=== PATIENT | female | born 1970 | race Two or more races ===

== ENCOUNTER 2018-11-07 20:37 | Inpatient (IN) | payer OTHER ==
[~2018-11-07] VITALS: Ht 167.6 cm; Wt 96.4 kg
[2018-11-07 22:15] LABS: Eosinophils # (auto) 0.3 uL; Hemoglobin 7.2 g/dL (12.2-16.2); Monocytes # (auto) 0.6 uL
[2018-11-07 22:17] LABS: Basophils # (auto) 0.1 uL; Basophils % (auto) 1.3 % (0.0-2.0); Eosinophils % (auto) 3.3 % (0.0-7.0); Hematocrit 24.8 % (36.0-46.0); Lymphocytes # (auto) 2.8 uL; Lymphocytes % (auto) 29.2 % (10.0-50.0); Mean Corpuscular Hemoglobin 16.7 pg (28.0-32.0); Mean Corpuscular Hgb Conc. 29.1 g/dL (32.0-36.0); Mean Corpuscular Volume 57.3 fL (80.0-100.0); Monocytes % (auto) 6.3 % (0.0-12.0); Neutrophils # (auto) 5.8 uL; Neutrophils % (auto) 59.9 % (37.0-80.0); Nucleated Red Blood Cells % 0.5 %; Red Blood Cells 4.33 10^6/uL (4.0-5.20); White Blood Cell 9.6 10^3/uL (4.4-10.8)
[2018-11-07 22:23] LABS: Red Cell Distribution Width 22.9 % (11.8-14.3)
[2018-11-07 22:25] LABS: Platelet Count (auto) 842 10^3/uL (140-450)
[2018-11-07 22:28] LABS: Albumin 3.6 g/dL (3.4-5.0); BUN/Creatinine Ratio 11.9; Calcium 8.3 mg/dL (8.5-10.1); Potassium 3.6 mmol/L (3.5-5.1)
[2018-11-07 22:31] LABS: Bilirubin, Total 0.2 mg/dL (0.2-1.0); Total Protein 7.6 g/dL (6.4-8.2)
[2018-11-07 22:56] LABS: Urine Bacteria NONE SEEN /hpf (None Seen); Urine Blood 1+ /uL (Negative); Urine Specific Gravity 1.004 (1.001-1.035); Urine WBC <1 /hpf (0 - 5)
[2018-11-07] MEDS ORDERED: SODIUM CHLORIDE 0.9% 1,000 ML IV ONE ×2 (23:00→23:30)
[2018-11-07 23:09] LABS: Alcohol, Urine < 3.0 mg/dL (0-5); Amphetamine Screen, Urine NEGATIVE (NEGATIVE); Barbiturate Scree,Urine NEGATIVE (NEGATIVE); Benzodiazephine Screen, Urine NEGATIVE (NEGATIVE); Cannabinoid Screen, Urine NEGATIVE (NEGATIVE); Cocaine Screen, Urine NEGATIVE (NEGATIVE); Opiate Scree,Urine NEGATIVE (NEGATIVE); Phencyclidine Screen, Urine NEGATIVE (NEGATIVE)
[2018-11-08 00:13] LABS: Blood Alcohol < 3.0 mg/dL (0-5)
[2018-11-08] MEDS ORDERED: ACETAMINOPHEN 325 MG TAB PO ONE (00:15)
[2018-11-08 00:18] LABS: INR 0.91 (0.9-1.15); Partial Thromboplastin Time 22.9 sec (23.78-33.04); Prothrombin Time 9.8 sec (9.27-12.13)
[2018-11-08] MEDS ORDERED: TEMAZEPAM 15 MG CAP PO PRN (05:00)
[2018-11-08] MEDS ORDERED: ONDANSETRON HCL 4 MG/2 ML VIAL IV PRN (05:00)
[2018-11-08] MEDS ORDERED: ACETAMINOPHEN 325 MG TAB PO PRN (05:00)
[2018-11-08] MEDS ORDERED: ATORVASTATIN 20 MG TAB PO ONE (06:00)
[2018-11-08] MEDS ORDERED: ASPirin 81 mg TAB PO SCH (10:00)
[2018-11-08] MEDS: FAMOTIDINE 20 MG TAB PO SCH ×2 (11:53→22:53)
[2018-11-08] MEDS: ASPirin 81 mg TAB PO SCH (11:54)
[2018-11-08 12:14] LABS: % Iron Saturation 1.7 % (15-50)
[2018-11-08 12:20] LABS: Cholesterol 169 mg/dL (< 200); HDL Cholesterol 57 mg/dL (40-59); LDL Cholesterol 104 mg/dL (< 100); Triglycerides 114 mg/dL (< 150)
[2018-11-08 17:00] VITALS: BP 137/90
--- NOTE | 2018-11-08 17:00 | NUR ---
Telemetry admit from ER [facility] admitted to Telemetry unit no SBAR received from Suzan MA RN. Patient oriented to Kylie Fisher RN primary RN, unit, room, bed, and unit policies regarding patient care and visiting hours. Patient is awake and alert x4. Patient has no s/s of distress/sob. Instructed patient on poc, patient verbalized understanding. Patient weighed by bedscale and encouraged to call if they need something. All questions and concerns addressed, patient verbalized understanding. Bed is in lowest position with side rails raised x2, bed wheels locked and call light within reach. will continue to monitor. family at bedside Note:
[2018-11-08] MEDS ORDERED: INFLUENZA QUAD 2018-2019 0.5 ML SYRG IM ONE (18:30)
[2018-11-08] MEDS ORDERED: PNEUMOCOCCAL VACC POLYS 25 MCG/0.5 ML VIAL IM ONE (18:30)
[2018-11-08] MEDS ORDERED: CARV3.1240 PO (18:37)
[2018-11-08] MEDS ORDERED: FLUO-125 PO (18:37)
[2018-11-08] MEDS ORDERED: FURO40TA4 PO (18:37)
[2018-11-08] MEDS ORDERED: LOSA-49 PO (18:37)
[2018-11-08] MEDS ORDERED: METF-370 PO (18:37)
[2018-11-08] MEDS ORDERED: DULO60CA PO (18:37)
[2018-11-08] MEDS ORDERED: GABA300C10 PO (18:37)
[2018-11-08] MEDS: metFORMIN HYDROCHLORIDE 500 MG TAB PO SCH (18:45)
--- NOTE | 2018-11-08 19:14 | NUR ---
CLOSING SHIFT NOTE ENDORSED CARE TO DIRECTOR OF PHYSICAL SECURITY RN BRENTON. PATIENT HAS NO S/S OF DISTRESS/SOB OR PAIN AT THIS TIME.
--- NOTE | 2018-11-08 19:30 | NUR ---
Opening Shift Note Assumed care of patient, awake and alert. No S/S of distress/SOB. Pt states that she has a headache 08/20. Instructed on POC and to call for assistance as needed. Pt is laying in bed with the rails up x2, bed locked in the lowest position and the call light is within reach. Pt has a 18 ga IV in the left AC that flushes without discomfort. Will continue to monitor.
[2018-11-08 22:00] VITALS: BP 114/64
[2018-11-08] MEDS ORDERED: ATORVASTATIN 20 MG TAB PO SCH (22:00)
[2018-11-08] MEDS: ATORVASTATIN 20 MG TAB PO SCH (22:53)
[2018-11-08] MEDS: HYDROcodone-ACET 5/325MG TAB PO PRN (23:04)
[2018-11-09 05:00] VITALS: BP 134/81
[2018-11-09 05:50] LABS: Basophils # (auto) 0.1 uL; Lymphocytes # (auto) 1.9 uL; Mean Corpuscular Volume 57.1 fL (80.0-100.0); Monocytes # (auto) 0.5 uL; Nucleated Red Blood Cells % 0.4 %
[2018-11-09 05:53] LABS: Basophils % (auto) 1.7 % (0.0-2.0); Eosinophils # (auto) 0.4 uL; Eosinophils % (auto) 5.2 % (0.0-7.0); Hematocrit 23.8 % (36.0-46.0); Lymphocytes % (auto) 26.9 % (10.0-50.0); Mean Corpuscular Hemoglobin 16.8 pg (28.0-32.0); Mean Corpuscular Hgb Conc. 29.3 g/dL (32.0-36.0); Monocytes % (auto) 7.3 % (0.0-12.0); Neutrophils # (auto) 4.2 uL; Neutrophils % (auto) 58.9 % (37.0-80.0); Platelet Count (auto) 688 10^3/uL (140-450); Red Blood Cells 4.16 10^6/uL (4.0-5.20); White Blood Cell 7.2 10^3/uL (4.4-10.8)
[2018-11-09 06:03] LABS: Red Cell Distribution Width 22.2 % (11.8-14.3)
[2018-11-09 06:07] LABS: Albumin 3.2 g/dL (3.4-5.0); Potassium 3.7 mmol/L (3.5-5.1)
--- NOTE | 2018-11-09 06:10 | NUR ---
Paged Hospitalist Hgb of 7.0. Down from 7.2
[2018-11-09 06:13] LABS: BUN/Creatinine Ratio 17.6; Bilirubin, Total 0.2 mg/dL (0.2-1.0); Calcium 8.5 mg/dL (8.5-10.1); Total Protein 6.7 g/dL (6.4-8.2)
[2018-11-09] MEDS: metFORMIN HYDROCHLORIDE 500 MG TAB PO SCH ×2 (06:35→17:53)
[2018-11-09] MEDS: HYDROcodone-ACET 5/325MG TAB PO PRN ×3 (06:37→19:21)
--- NOTE | 2018-11-09 06:40 | NUR ---
Page returned Received orders to repeat H&H 4 hours from previous draw.
[2018-11-09 09:00] VITALS: BP 124/77
[2018-11-09 09:46] LABS: Hematocrit 25.2 % (36.0-46.0); Hemoglobin 7.4 g/dL (12.2-16.2)
[2018-11-09] MEDS: FLUoxetine HCL 20 MG CAP PO SCH (10:44)
[2018-11-09] MEDS: ASPirin 81 mg TAB PO SCH (10:44)
[2018-11-09] MEDS: FAMOTIDINE 20 MG TAB PO SCH ×2 (10:44→22:16)
[2018-11-09] MEDS: DULoxetine HCL 30 MG CAP PO SCH (10:45)
[2018-11-09 13:00] VITALS: BP 139/82
[2018-11-09 17:00] VITALS: BP 132/77
--- NOTE | 2018-11-09 19:25 | NUR ---
Opening Shift Note Assumed care of patient, awake and alert. No S/S of distress/SOB. Pt states that she has a headache 04/20. Instructed on POC and to call for assistance as needed. Pt is laying in bed with the rails up x2, bed locked in the lowest position and the call light is within reach. Pt has a 18 ga IV in the left AC that flushes without discomfort. Will continue to monitor.
[2018-11-09 22:00] VITALS: BP 114/66
[2018-11-09] MEDS: ATORVASTATIN 20 MG TAB PO SCH (22:16)
[2018-11-10] MEDS: HYDROcodone-ACET 5/325MG TAB PO PRN ×3 (00:46→20:40)
[2018-11-10 04:52] VITALS: BP 135/86
--- NOTE | 2018-11-10 05:02 | NUR ---
IV insertion IV access obtained, via clean sterile technique by inserting 22 gauge catheter in the right forearm. IV secured properly. No trauma to site. Patient tolerated procedure well.
[2018-11-10] MEDS: metFORMIN HYDROCHLORIDE 500 MG TAB PO SCH ×2 (06:14→17:55)
--- NOTE | 2018-11-10 07:50 | NUR ---
RECEIVED PATIENT ALERT AND ORIENTED X4, NOT IN DISTRESS, CLEAR LS IN BILATERAL LUNG LOBES, RR=18, DENIED SOB OR CHEST DISCOMFORT, ABDOMEN SOFT WITH ACTIVE BS, LAST BM=THIS MORNING REPORTED, TR.UPPER EXTREMITY WEAKNESS NOTED, SKIN INTACT WARM TO TOUCH, HEAD OF BED ELEVATED, BED ON LOWER POSITION, RAILS UP X2, CALL LIGHT ON REACH, DENIED PAIN AT THIS MOMENT, RESTING ON BED, WILL CONTINUE MONITORING.
[2018-11-10 08:51] VITALS: BP 136/80
[2018-11-10] MEDS: DULoxetine HCL 30 MG CAP PO SCH (10:25)
[2018-11-10] MEDS: ASPirin 81 mg TAB PO SCH (10:25)
[2018-11-10] MEDS: FAMOTIDINE 20 MG TAB PO SCH ×2 (10:25→21:21)
[2018-11-10] MEDS: FLUoxetine HCL 20 MG CAP PO SCH (10:25)
--- NOTE | 2018-11-10 10:54 | NUR ---
NOT IN DISTRESS, C/O HEADACH PAIN L=[id number] REPORTED, NORCO PO PRN WAS GIVEN REPORTED, AMBULATED TO BR, TOLERATED WELL, WENT ON WC TO MRI, WILL CONTINUE MONITORING.
[2018-11-10 11:12] LABS: Folate (Folic Acid) 10.67 ng/mL (5.38-24)
[2018-11-10] MEDS: SODIUM FERR GLUC 62.5MG/5ML 125 MG in SODIUM CHL 0.9% 100 ML IV SCH (12:25)
[2018-11-10 13:00] VITALS: BP 119/76
--- NOTE | 2018-11-10 16:06 | NUR ---
MRI WAS DONE, DR. [facility]UR[facility] IS AWARE OF THE MRI RESULT REPORTED, PELVIC US WAS DONE, TOLERATED WELL, WENT ON FOR PELVIC CT, STOOL SAMPLE WAS SENT TO THE LAB FOR STOOL OCCULT BLOOD ORDERED, WILL CONTINUE MONITORING.
[2018-11-10 17:00] VITALS: BP 139/92
--- NOTE | 2018-11-10 19:30 | NUR ---
Opening Shift Note Assumed care of patient, awake and alert. No S/S of distress/SOB. Pt states that she has a headache 04/20. Instructed on POC and to call for assistance as needed. Pt is laying in bed with the rails up x2, bed locked in the lowest position and the call light is within reach. Pt has a 22ga IV in the right forearm that flushes without discomfort. Will continue to monitor.
--- NOTE | 2018-11-10 19:32 | NUR ---
NOT IN DISTRESS, DENIED PAIN, REPORT WAS GIVEN TO THE SIGN INSTALLER RN.
[2018-11-10] MEDS: ATORVASTATIN 20 MG TAB PO SCH (21:21)
[2018-11-10 22:00] VITALS: BP 125/76
[2018-11-11] VITALS (10 sets, daily range): BP systolic 114–143; BP diastolic 60–96
[2018-11-11 05:52] LABS: Basophils # (auto) 0.1 uL; Monocytes # (auto) 0.4 uL; White Blood Cell 6.6 10^3/uL (4.4-10.8)
[2018-11-11 05:55] LABS: Basophils % (auto) 1.6 % (0.0-2.0); Eosinophils # (auto) 0.4 uL; Eosinophils % (auto) 6.6 % (0.0-7.0); Hematocrit 23.7 % (36.0-46.0); Lymphocytes # (auto) 1.8 uL; Lymphocytes % (auto) 27.7 % (10.0-50.0); Mean Corpuscular Hemoglobin 16.6 pg (28.0-32.0); Mean Corpuscular Volume 57.4 fL (80.0-100.0); Monocytes % (auto) 5.5 % (0.0-12.0); Neutrophils # (auto) 3.9 uL; Neutrophils % (auto) 58.6 % (37.0-80.0); Nucleated Red Blood Cells % 0.6 %; Platelet Count (auto) 553 10^3/uL (140-450); Red Blood Cells 4.13 10^6/uL (4.0-5.20)
[2018-11-11 06:06] LABS: Albumin 3.3 g/dL (3.4-5.0); Calcium 8.4 mg/dL (8.5-10.1); Potassium 3.7 mmol/L (3.5-5.1)
[2018-11-11 06:09] LABS: BUN/Creatinine Ratio 18.5; Bilirubin, Total 0.2 mg/dL (0.2-1.0); Total Protein 6.8 g/dL (6.4-8.2)
[2018-11-11] MEDS: metFORMIN HYDROCHLORIDE 500 MG TAB PO SCH ×2 (06:21→17:43)
[2018-11-11] MEDS: HYDROcodone-ACET 5/325MG TAB PO PRN ×2 (06:27→21:46)
[2018-11-11 06:28] LABS: Red Cell Distribution Width 23.1 % (11.8-14.3)
[2018-11-11 06:30] LABS: Hemoglobin 6.9 g/dL (12.2-16.2)
--- NOTE | 2018-11-11 06:33 | NUR ---
Hospitalist Paged Critical lab - HGB- 6.9
--- NOTE | 2018-11-11 06:36 | NUR ---
Page returned Recieved orders to repeat H&H in 6 hours.
--- NOTE | 2018-11-11 07:30 | NUR ---
Opening Shift Note Assumed care of patient, awake alert and oriented x4 . No S/S of distress/SOB or pain. Instructed on POC and to call for assistance PRN, will continue to monitor for changes Q1hr and PRN.
--- NOTE | 2018-11-11 09:50 | NUR ---
Paged Hospitalist for critical lab, Hgb 6.9, awaiting call.
--- NOTE | 2018-11-11 10:03 | NUR ---
Hospitalist Rafael Sinclair returned call, obtained order for 1 pack RBC, orders read back and verified.
[2018-11-11] MEDS: FAMOTIDINE 20 MG TAB PO SCH ×2 (11:00→21:44)
[2018-11-11] MEDS: ASPirin 81 mg TAB PO SCH (11:00)
[2018-11-11] MEDS: FLUoxetine HCL 20 MG CAP PO SCH (11:00)
[2018-11-11] MEDS: DULoxetine HCL 30 MG CAP PO SCH (11:00)
[2018-11-11] MEDS: SODIUM FERR GLUC 62.5MG/5ML 125 MG in SODIUM CHL 0.9% 100 ML IV SCH (12:00)
[2018-11-11 12:11] LABS: Hematocrit 24.3 % (36.0-46.0)
--- NOTE | 2018-11-11 15:10 | NUR ---
Blood transfusion started. All checks completed with Margy FALK.
--- NOTE | 2018-11-11 15:28 | NUR ---
Nutrition Assessment Notes please see attached link fro complete assessment Est. Needs ABMariya [id number] kcal (23-25 kcal/kgBW), 77-84 gms pro (1.0-1.1 gms/kgBW). Will continue to monitor pertinent labs and reassess nutrient need prn Addendum: 11/11/18 at [address] Amended: Links added.
--- NOTE | 2018-11-11 16:10 | NUR ---
Blood transfusing, no adverse reactions noted, patient tolerating well.
--- NOTE | 2018-11-11 19:08 | NUR ---
End of blood transfusion. Blood transfusion complete. Patient tolerated well.
--- NOTE | 2018-11-11 19:10 | NUR ---
End of shift note: Patient is sitting comfortably in bed with family at bedside.No s/s of distress noted or stated. Will endorse care to NOC RN.
--- NOTE | 2018-11-11 21:30 | NUR ---
IV removal Patient c/o pain in her IV site. IV dc'd with sterile technique, catheter fully intact. Pressure dressing applied to site. Patient tolerated procedure well.
[2018-11-11] MEDS: ATORVASTATIN 20 MG TAB PO SCH (21:44)
--- NOTE | 2018-11-11 23:00 | NUR ---
IV insertion IV access obtained, via clean sterile technique by inserting 22 gauge catheter at L forearm after 1 attempt. IV secured properly. No trauma to site. Patient tolerated procedure well.
[2018-11-12 04:58] VITALS: BP 119/69
[2018-11-12] MEDS: metFORMIN HYDROCHLORIDE 500 MG TAB PO SCH ×2 (06:12→17:52)
[2018-11-12 07:08] LABS: Hemoglobin 8.1 g/dL (12.2-16.2); White Blood Cell 7.5 10^3/uL (4.4-10.8)
--- NOTE | 2018-11-12 07:08 | NUR ---
ENTERED PT ROOM AT THIS TIME FOR CPAP CHECK. PT STATES SHE IS READY TO COME OFF CPAP MACHINE. PT ON ROOM AIR, SPO2 96%, HR 102, RR 18. NO S/S OF RESPIRATORY DISTRESS.
[2018-11-12 07:10] LABS: Basophils # (auto) 0.1 uL; Basophils % (auto) 1.5 % (0.0-2.0); Eosinophils # (auto) 0.3 uL; Eosinophils % (auto) 4.5 % (0.0-7.0); Hematocrit 27.7 % (36.0-46.0); Lymphocytes # (auto) 1.9 uL; Lymphocytes % (auto) 25.7 % (10.0-50.0); Mean Corpuscular Hemoglobin 17.8 pg (28.0-32.0); Mean Corpuscular Hgb Conc. 29.3 g/dL (32.0-36.0); Mean Corpuscular Volume 60.8 fL (80.0-100.0); Monocytes # (auto) 0.5 uL; Monocytes % (auto) 6.2 % (0.0-12.0); Neutrophils # (auto) 4.6 uL; Neutrophils % (auto) 62.1 % (37.0-80.0); Nucleated Red Blood Cells % 0.7 %; Platelet Count (auto) 499 10^3/uL (140-450); Red Blood Cells 4.56 10^6/uL (4.0-5.20)
[2018-11-12 07:25] LABS: Red Cell Distribution Width 26.2 % (11.8-14.3)
[2018-11-12 07:30] LABS: Albumin 3.7 g/dL (3.4-5.0); Calcium 8.8 mg/dL (8.5-10.1); Potassium 3.6 mmol/L (3.5-5.1)
--- NOTE | 2018-11-12 07:30 | NUR ---
Opening Shift Note Assumed care of patient, patient sitting up awake and alert. No S/S of distress/SOB or pain. Instructed on POC and to call for assistance PRN, will continue to monitor for changes Q1hr and PRN.
[2018-11-12 07:37] LABS: BUN/Creatinine Ratio 12.7; Bilirubin, Total 0.3 mg/dL (0.2-1.0); Total Protein 7.9 g/dL (6.4-8.2)
[2018-11-12 08:00] VITALS: BP 126/83
[2018-11-12 09:00] VITALS: BP 126/83
[2018-11-12] MEDS: FLUoxetine HCL 20 MG CAP PO SCH (09:55)
[2018-11-12] MEDS: ASPirin 81 mg TAB PO SCH (09:55)
[2018-11-12] MEDS: FAMOTIDINE 20 MG TAB PO SCH ×2 (09:55→21:25)
[2018-11-12] MEDS: DULoxetine HCL 30 MG CAP PO SCH (09:55)
[2018-11-12 12:51] VITALS: BP 122/80
[2018-11-12] MEDS: SODIUM FERR GLUC 62.5MG/5ML 125 MG in SODIUM CHL 0.9% 100 ML IV SCH (13:02)
[2018-11-12 17:00] VITALS: BP 137/84
--- NOTE | 2018-11-12 18:48 | NUR ---
IV removal Patient c/o pain, 4/10 at IV site. Assessed site, slight swelling, tender to touch, no redness present. IV DC'd with clean sterile technique, catheter fully intact. Pressure dressing and a cold compress applied to site. Patient tolerated well.
--- NOTE | 2018-11-12 19:12 | NUR ---
End of shift report Patient resting comfortably in bed, no c/o pain, no s/s of distress noted or stated. Bed at lowest position and call light within reach. Care endorsed to NOC RN.
[2018-11-12] MEDS: ATORVASTATIN 20 MG TAB PO SCH (21:25)
[2018-11-12] MEDS: HYDROcodone-ACET 5/325MG TAB PO PRN (21:29)
[2018-11-12 21:47] VITALS: BP 130/86
[2018-11-12] MEDS ORDERED: PNEUMOCOCCAL VACC POLYS 25 MCG/0.5 ML VIAL IM ONE (22:30)
[2018-11-12] MEDS ORDERED: INFLUENZA QUAD 2018-2019 0.5 ML SYRG IM ONE (22:30)
--- NOTE | 2018-11-13 | NUR ---
NPO after midnight instructed and verbalized understanding. Scheduled for STANLEY in AM.Consent not sign. Patient want to talk to Dr Tee before the procedure.
[2018-11-13 05:23] VITALS: BP 132/88
[2018-11-13 05:24] LABS: Hemoglobin 7.9 g/dL (12.2-16.2); Lymphocytes # (auto) 1.7 uL; Nucleated Red Blood Cells % 0.5 %
[2018-11-13 05:26] LABS: Basophils # (auto) 0.2 uL; Basophils % (auto) 2.2 % (0.0-2.0); Eosinophils # (auto) 0.5 uL; Eosinophils % (auto) 7.4 % (0.0-7.0); Mean Corpuscular Hemoglobin 18.1 pg (28.0-32.0); Mean Corpuscular Hgb Conc. 29.2 g/dL (32.0-36.0); Mean Corpuscular Volume 62.2 fL (80.0-100.0); Monocytes # (auto) 0.4 uL; Monocytes % (auto) 6.3 % (0.0-12.0); Neutrophils # (auto) 4.1 uL; Neutrophils % (auto) 59.1 % (37.0-80.0); Platelet Count (auto) 435 10^3/uL (140-450); Red Blood Cells 4.35 10^6/uL (4.0-5.20)
[2018-11-13 05:34] LABS: Calcium 8.2 mg/dL (8.5-10.1); Potassium 3.7 mmol/L (3.5-5.1)
[2018-11-13 05:41] LABS: Albumin 3.2 g/dL (3.4-5.0); BUN/Creatinine Ratio 21.6; Bilirubin, Total 0.2 mg/dL (0.2-1.0); Total Protein 6.8 g/dL (6.4-8.2)
[2018-11-13 05:57] LABS: Red Cell Distribution Width 25.3 % (11.8-14.3)
[2018-11-13] MEDS: metFORMIN HYDROCHLORIDE 500 MG TAB PO SCH ×2 (07:00→17:23)
[2018-11-13 07:13] LABS: INR 0.92 (0.9-1.15); Partial Thromboplastin Time 26.5 sec (23.78-33.04); Prothrombin Time 9.9 sec (9.27-12.13)
--- NOTE | 2018-11-13 07:40 | NUR ---
Respiratory note: ROUTINE CPAP CHECK. PT WAS OFF CPAP ALREADY WHEN I WALKED IN. HR 94, RR 20, POX 94% ON RA, BREATH SOUNDS ARE CLEAR. NO SOB OR DISTRESS NOTED.
--- NOTE | 2018-11-13 07:50 | NUR ---
Patient in bed, asleep, no acute distress noted. On NPO for STANLEY.
[2018-11-13 08:46] VITALS: BP 122/74
[2018-11-13] MEDS: FLUoxetine HCL 20 MG CAP PO SCH (10:00)
[2018-11-13] MEDS: FAMOTIDINE 20 MG TAB PO SCH ×2 (10:00→21:47)
[2018-11-13] MEDS: ASPirin 81 mg TAB PO SCH (10:00)
[2018-11-13] MEDS: DULoxetine HCL 30 MG CAP PO SCH (10:00)
--- NOTE | 2018-11-13 10:00 | NUR ---
Patient on NPO. Medications by mouth for 1000 am not given.
--- NOTE | 2018-11-13 12:00 | NUR ---
Patient asked what time is she going for her procedure. Explained to patient that I spoke with a Nuclear Medicine Technician RN but there's no definite time given regarding her STANLEY scheduled today. Patient verbalized understanding.
[2018-11-13] MEDS: SODIUM FERR GLUC 62.5MG/5ML 125 MG in SODIUM CHL 0.9% 100 ML IV SCH (12:16)
--- NOTE | 2018-11-13 12:45 | NUR ---
Rafael Espinoza came over. made aware patient is about to be transferred to [facility] for STANLEY. Dr. Sinclair said patient for possible discharge tomorrow.
--- NOTE | 2018-11-13 12:50 | NUR ---
Patient transferred via bed to Take Off Man for STANLEY. Patient awake, oriented x4, no acute distress noted, IV line intact and patent. Endorsed patient to Take Off Man RN.
[2018-11-13 12:55] VITALS: BP 126/88
[2018-11-13] MEDS ORDERED: MIDAZOLAM HCL 1MG/1ML-2 ML VIAL IV ONE ×2 (13:15→14:00)
[2018-11-13] MEDS ORDERED: MIDAZOLAM HCL 1MG/1ML-2 ML VIAL ONE (13:52)
--- NOTE | 2018-11-13 14:45 | NUR ---
Patient back to room from Fiscal Assistant post STANLEY. Patient sleepy.
--- NOTE | 2018-11-13 14:52 | NUR ---
Dr. Diggs at bedside. stated he will jaswinder at the STANLEY results if patient okay to go home as per Neurology.
[2018-11-13] MEDS: HYDROcodone-ACET 5/325MG TAB PO PRN ×2 (14:58→21:47)
--- NOTE | 2018-11-13 14:58 | NUR ---
Patient with facial grimacing noted, stated she has headache. Patient refused Tylenol, requested for [place]. [place] 5/325 PO given as ordered. at bedside.
[2018-11-13 17:15] VITALS: BP 118/73
[2018-11-13 20:00] VITALS: BP 130/71
[2018-11-13] MEDS: ATORVASTATIN 20 MG TAB PO SCH (21:47)
[2018-11-13 22:00] VITALS: BP 130/71
--- NOTE | 2018-11-13 22:38 | NUR ---
Respiratory note: PT PLACED ON NOC CPAP. PT CPAP(RESP 2) PLUGGED INTO RED OUTLET. PT ON CONTINUOUS PULSE OX(1). PT CURRENTLY WEARING SIZE (M) FACE MASK WITH NO VISIBLE SKIN BREAKDOWN NOTED. PT HR 80 RR 18 SPO2 96%. PT REMAINS STABLE AT THIS TIME WILL CONTINUE TO MONITOR PT ORDERED.
[2018-11-14] VITALS (7 sets, daily range): BP systolic 122–143; BP diastolic 74–84
[2018-11-14] MEDS: metFORMIN HYDROCHLORIDE 500 MG TAB PO SCH ×2 (07:17→18:20)
--- NOTE | 2018-11-14 07:55 | NUR ---
Patient walking in the room. No acute distress noted.
--- NOTE | 2018-11-14 07:57 | NUR ---
RT NOTE: PT WAS NO LONGER ON APAP. ON RA SPO2 95 HR 72 RR 14. NO SIGNS OF RESPIRATORY DISTRESS NOTED AT THIS TIME. WILL CONTINUE TO MONITOR.
--- NOTE | 2018-11-14 09:30 | NUR ---
Family at bedside.
[2018-11-14] MEDS: ASPirin 81 mg TAB PO SCH (09:31)
[2018-11-14] MEDS: FAMOTIDINE 20 MG TAB PO SCH ×2 (09:31→22:06)
[2018-11-14] MEDS: DULoxetine HCL 30 MG CAP PO SCH (09:31)
[2018-11-14] MEDS: FLUoxetine HCL 20 MG CAP PO SCH (09:31)
--- NOTE | 2018-11-14 12:03 | NUR ---
Rafael Espinoza at bedside. ordered to wait for Dr. Diggs (for Neurology) to see the STANLEY results and let Dr. Diggs discuss with Dr. Tee (for Cardiology) the next plan of care. Dr. Sinclair ordered to continue with Autumn johnson. Patient for possible discharge tomorrow.
[2018-11-14] MEDS: SODIUM FERR GLUC 62.5MG/5ML 125 MG in SODIUM CHL 0.9% 100 ML IV SCH (12:44)
--- NOTE | 2018-11-14 13:50 | NUR ---
Dr. Diggs at bedside. made aware Rafael Espinoza asked if he can discuss the STANLEY results and the next plan of care with Dr. Tee. Dr. Diggs ordered US Doppler to r/o DVT on both lower extremities.
--- NOTE | 2018-11-14 19:25 | NUR ---
Opening Shift Note Received report from Nikky FALK. Assumed care of patient, awake and alert. No S/S of distress/SOB, complaints of headache at 7/10. Instructed on POC and to call for assist PRN, will continue to monitor for changes Q1hr and PRN.
[2018-11-14] MEDS: HYDROcodone-ACET 5/325MG TAB PO PRN (21:03)
[2018-11-14] MEDS: ATORVASTATIN 20 MG TAB PO SCH (22:05)
[2018-11-15 04:51] VITALS: BP 121/81
[2018-11-15] MEDS: metFORMIN HYDROCHLORIDE 500 MG TAB PO SCH (06:55)
--- NOTE | 2018-11-15 07:00 | NUR ---
Respiratory note: PT WAS NO LONGER ON HOSPITAL CPAP MACHINE . NO RESPIRATORY DISTRESS NOTED AT THIS TIME. WILL CONTINUE TO MONITOR. SPO2 96% ON RA HR 92 RR 14. PT WAS SITTING UP IN BED WATCHING T.V.
--- NOTE | 2018-11-15 07:30 | NUR ---
Patient rested the whole night, no pain at this time. Endorsed care to Mabel FALK.
--- NOTE | 2018-11-15 07:45 | NUR ---
Opening Shift Note Assumed care of patient, awake, alert, and oriented x4. Patient has no complaints of pain at this time. Patient has IV in right forearm 20g saline locked and flushing well, patient tolerating well. Patient is on room air with no S/S of distress/SOB. Patient's skin is intact. No weakness noted to right side. Instructed on POC and to call for assist PRN, will continue to monitor for changes Q1hr and PRN. Bed in lowest locked position, call light within reach.
[2018-11-15 08:00] VITALS: BP 142/83
[2018-11-15 09:00] VITALS: BP 142/83
[2018-11-15] MEDS: ASPirin 81 mg TAB PO SCH (09:33)
[2018-11-15] MEDS: DULoxetine HCL 30 MG CAP PO SCH (09:33)
[2018-11-15] MEDS: FLUoxetine HCL 20 MG CAP PO SCH (09:33)
[2018-11-15] MEDS: FAMOTIDINE 20 MG TAB PO SCH (09:33)
[2018-11-15] MEDS: SODIUM FERR GLUC 62.5MG/5ML 125 MG in SODIUM CHL 0.9% 100 ML IV SCH (11:57)
[2018-11-15 12:59] VITALS: BP 129/77
[2018-11-15 13:00] VITALS: BP 129/77
--- NOTE | 2018-11-15 14:25 | NUR ---
Discharge instructions given as ordered. Encourage to follow up with PMD as instructed. All questions and concerns addressed. Patient verbalized understanding. Medication reconciliation form completed and copy given to patient. IV removed with catheter intact, pressure dressing applied. Patient taken to vehicle with all personal belongings, accompanied by staff and family member. No distress noted at time of departure.
== END 2018-11-15 14:35 | disposition home or self-care (01) | DRG 65 ==
LOC: ER 20:47 → OVERFLOW 11-08 05:14 → WEST WING 11-08 17:49
PROVIDERS: ADMIT Nurse Practitioner; ATTEND Family Medicine
PROC: 5A09357 Assistance with Respiratory Ventilation, Less than 24 Consecutive Hours, Continuous Positive Airway Pressure (ICD-10-PCS; principal; 2018-11-11)
PROC: 30233N1 Transfusion of Nonautologous Red Blood Cells into Peripheral Vein, Percutaneous Approach (ICD-10-PCS; 2018-11-11)
PROC: 5A09357 Assistance with Respiratory Ventilation, Less than 24 Consecutive Hours, Continuous Positive Airway Pressure (ICD-10-PCS; 2018-11-12)
PROC: 5A09357 Assistance with Respiratory Ventilation, Less than 24 Consecutive Hours, Continuous Positive Airway Pressure (ICD-10-PCS; 2018-11-13)
PROC: 5A09357 Assistance with Respiratory Ventilation, Less than 24 Consecutive Hours, Continuous Positive Airway Pressure (ICD-10-PCS; 2018-11-14)
PROC: 5A09357 Assistance with Respiratory Ventilation, Less than 24 Consecutive Hours, Continuous Positive Airway Pressure (ICD-10-PCS; 2018-11-15)
DX: I63.9 Cerebral infarction, unspecified (principal); G81.90 Hemiplegia, unspecified affecting unspecified side; Q21.1 Atrial septal defect; R79.89 Other specified abnormal findings of blood chemistry; E11.9 Type 2 diabetes mellitus without complications; D50.9 Iron deficiency anemia, unspecified; I10 Essential (primary) hypertension; F32.9 Major depressive disorder, single episode, unspecified; E86.0 Dehydration; G51.0 Bell's palsy; D53.9 Nutritional anemia, unspecified; E78.00 Pure hypercholesterolemia, unspecified; F41.0 Panic disorder [episodic paroxysmal anxiety]; F17.200 Nicotine dependence, unspecified, uncomplicated; H54.61 Unqualified visual loss, right eye, normal vision left eye; H54.7 Unspecified visual loss; I08.0 Rheumatic disorders of both mitral and aortic valves; M50.323 Other cervical disc degeneration at C6-C7 level; M19.90 Unspecified osteoarthritis, unspecified site; E66.9 Obesity, unspecified; K57.30 Diverticulosis of large intestine without perforation or abscess without bleeding; Z79.899 Other long term (current) drug therapy; Z79.82 Long term (current) use of aspirin; Z82.49 Family history of ischemic heart disease and other diseases of the circulatory system; Z83.3 Family history of diabetes mellitus; Z86.32 Personal history of gestational diabetes; Z86.73 Personal history of transient ischemic attack (TIA), and cerebral infarction without residual deficits; Z68.34 Body mass index [BMI] 34.0-34.9, adult; Z90.49 Acquired absence of other specified parts of digestive tract; Z97.5 Presence of (intrauterine) contraceptive device; Z88.0 Allergy status to penicillin; Z79.84 Long term (current) use of oral hypoglycemic drugs; Z23 Encounter for immunization
CPT/HCPCS: 36415; 70450; 70551; 71045; 72125; 74176; 76856; 80053; 80061; 80307; 80320; 81001; 81241; 82270; 82607; 82746; 82962; 83540; 83550; 83605; 84484; 85014; 85018; 85025; 85301; 85302; 85303; 85305; 85306; 85610; 85613; 85670; 85705; 85730; 85732; 86147; 86850; 86900; 86901; 86920; 90674; 93005; 93306; 93312; 93886; 93970; 94660; 96360; 96361; A6257; G0378; J2250

== ENCOUNTER 2018-11-25 15:19 | Emergency (ER) | payer OTHER, MEDICAID ==
[~2018-11-25] VITALS: Ht 167.6 cm; Wt 88.5 kg
[~2018-11-25 15:19] MED LIST: CARV3.1240 PO; DULO60CA PO; FLUO-125 PO; FURO40TA4 PO; GABA300C10 PO; LOSA-49 PO; METF-370 PO
[2018-11-25 15:57] LABS: Basophils # (auto) 0.1 uL; Eosinophils # (auto) 0.3 uL; Lymphocytes # (auto) 1.8 uL
[2018-11-25 15:59] LABS: Basophils % (auto) 1.7 % (0.0-2.0); Eosinophils % (auto) 4.7 % (0.0-7.0); Hematocrit 37.3 % (36.0-46.0); Hemoglobin 11.5 g/dL (12.2-16.2); Lymphocytes % (auto) 26.5 % (10.0-50.0); Mean Corpuscular Hemoglobin 22.4 pg (28.0-32.0); Mean Corpuscular Hgb Conc. 30.8 g/dL (32.0-36.0); Mean Corpuscular Volume 72.7 fL (80.0-100.0); Monocytes # (auto) 0.3 uL; Neutrophils # (auto) 4.2 uL; Neutrophils % (auto) 62.1 % (37.0-80.0); Nucleated Red Blood Cells % 0.1 %; Platelet Count (auto) 577 10^3/uL (140-450); Red Blood Cells 5.13 10^6/uL (4.0-5.20); White Blood Cell 6.7 10^3/uL (4.4-10.8)
[2018-11-25 16:12] LABS: Anion Gap 8 (5-15); Blood Urea Nitrogen 4 mg/dL (7-18); Calcium 8.5 mg/dL (8.5-10.1); Carbon Dioxide 24 mmol/L (21-32); Chloride 105 mmol/L (98-107); Glucose 115 mg/dL (74-106); Potassium 3.3 mmol/L (3.5-5.1); Sodium 137 mmol/L (136-145)
[2018-11-25 16:19] LABS: Alanine Aminotransferase 25 U/L (13-56); Alkaline Phosphatase 129 U/L (45-117); Aspartate Aminotransferase 15 U/L (15-37); BUN/Creatinine Ratio 5.3; Bilirubin, Total 0.4 mg/dL (0.2-1.0); GFR African American > 60 mL/min; GFR Non-African American > 60 mL/min; Total Protein 8.1 g/dL (6.4-8.2)
[2018-11-25 16:25] LABS: Red Cell Distribution Width 42.5 % (11.8-14.3)
[2018-11-25] MEDS ORDERED: ASPirin 81 mg TAB PO ONE (16:45)
[2018-11-25 17:02] LABS: Urine Bacteria NONE SEEN /hpf (None Seen); Urine Blood Negative /uL (Negative); Urine Specific Gravity 1.003 (1.001-1.035); Urine WBC <1 /hpf (0 - 5)
[2018-11-25 17:45] VITALS: BP 120/75
== END 2018-11-25 18:03 | disposition home or self-care (01) ==
LOC: ER 15:23
DX: R07.89 Other chest pain (principal); E11.9 Type 2 diabetes mellitus without complications; I10 Essential (primary) hypertension; Z86.73 Personal history of transient ischemic attack (TIA), and cerebral infarction without residual deficits; Z79.84 Long term (current) use of oral hypoglycemic drugs; Z79.899 Other long term (current) drug therapy
CPT/HCPCS: 36415; 71046; 80053; 81001; 84484; 85025; 85379; 93005